=== PATIENT | female | born 2000 | race Caucasian/White ===

== ENCOUNTER 2022-08-22 18:44 | Emergency (ER) | payer BC ==
[2022-08-22] MEDS ORDERED: SODIUM CHLORIDE 0.9% 1000 ML INFUS.BAG IV ONE (18:49)
[2022-08-22] MEDS ORDERED: ONDANSETRON 4 MG/2 ML VIAL IVPUSH ONE ×2 (18:49→21:18)
[2022-08-22 18:50] VITALS: BP 112/62; PULSE 94; RESP 15; TEMP 99.3; BMI 19.1
[2022-08-22] MEDS ORDERED: ONDANSETRON 4 MG/2 ML VIAL ONE ×2 (18:51→21:19)
[2022-08-22 19:18] LABS: HEMATOCRIT 41.1 % (32.4-45.2); HEMOGLOBIN 14.2 G/dL (10.7-15.3); MCH 29.9 pg (25.7-33.7); MCHC 34.6 g/dl (32.0-36.0); MEAN CELL VOLUME 86.5 fl (80-96); MEAN PLT VOLUME 8.2 fl (7.5-11.1); PLATELET COUNT 279.4 10^3/uL (134-434); RBC 4.75 10^6/uL (3.60-5.2); WHITE BLOOD COUNT 14.5 10^3/uL (4.0-10.8)
[2022-08-22 19:31] LABS: ALBUMIN 4.4 g/dl (3.4-5.0); BILIRUBIN,TOTAL 0.8 mg/dl (0.2-1); CALCIUM 9.1 mg/dl (8.5-10); CREATININE 0.7 mg/dl (0.55-1.3); TOT PROT 7.3 g/dl (6.4-8.2)
[2022-08-22] MEDS ORDERED: ACETAMINOPHEN 1000 MG/100 ML BAG IVPB ONE (20:23)
[2022-08-22] MEDS ORDERED: ACETAMINOPHEN INJECTION 100 ML IVPB ONE (20:24)
[2022-08-22 22:58] LABS: PLATELET ESTIMATE ADEQUATE
== END 2022-08-22 21:56 | disposition home or self-care (01) ==
LOC: FER 18:44
PROC: 3E0333Z Introduction of Anti-inflammatory into Peripheral Vein, Percutaneous Approach (ICD-10-PCS; principal; 2022-08-22)
PROC: 3E033GC Introduction of Other Therapeutic Substance into Peripheral Vein, Percutaneous Approach (ICD-10-PCS; 2022-08-22)
PROC: 3E033GC Introduction of Other Therapeutic Substance into Peripheral Vein, Percutaneous Approach (ICD-10-PCS; 2022-08-22)
DX: K52.9 Noninfective gastroenteritis and colitis, unspecified (principal); R10.13 Epigastric pain
CPT/HCPCS: 36415; 74177-TC; 80053; 81003; 83690; 84703; 85027; 99285-25; Q9967